=== PATIENT | male | born 1960 | race African-American/Black ===

== ENCOUNTER 2020-07-06 12:36 | Emergency (ER) | payer MEDICARE, MEDICAID ==
[~2020-07-06] VITALS: Ht 167.6 cm; Wt 87.1 kg
[~2020-07-06 12:36] MED LIST: AMBIEN10 M1 ORAL; AMITIZA24 MCG ORAL; DILAUDID4 MG ORAL; EPZICOM1 TAB ORAL; FENOFIBRATE 13134 MG ORAL; KLONOPIN1 MG ORAL; LACTULOSE20 GM/301 ORAL; LEXIVA700 MG ORAL; LIPITOR40 MG ORAL; NORVASC10 MG ORAL; PROPRANOLOL HCL10 MG ORAL; TRAZODONE HCL100 MG ORAL; VITAMIN D250000 UNI1 ORAL; XYZAL5 MG ORAL; ZETIA10 MG ORAL; ZYRTEC10 MG ORAL; [UNRECOGNIZED DRUG - OTHER] INJ
[2020-07-06] MEDS ORDERED: Metoclopramide 10mg/2ml Inj IVP ONE (13:00)
[2020-07-06] MEDS ORDERED: SUMAtriptan 6mg/0.5ml Inj SUBQ ONE (13:00)
[2020-07-06 13:04] VITALS: BP 141/95
--- NOTE | 2020-07-06 13:10 | NUR ---
ED Nurse Note: Patient from home and walked in due to SOB x 4 months and headache. sats 92 % in room air. Hx of asthma. Patient AAO x4, VSS at this time
--- NOTE | 2020-07-06 13:18 | Emergency Room Report ---
History of Present Illness General Chief Complaint: Dyspnea/Respdistress Present Illness HPI 59-year-old male with history of asthma here complaining of several months of asthma exacerbation and is requesting a chest x-ray primary doctor has not done so. Also requesting Dilaudid for headache. Reports that he took it was all the way from [place] to come here for his treatment. Denies diarrhea, loss of taste, loss of smell, cough or congestion. Complains of chest pain and pressure. Reports that he quit smoking many years ago. Denies any drug use and alcohol intake. Minimal wheezing noted patient is gasping for air. O2 sat is 92% on arrival. Patient appears to be afebrile. He also reports that he has history of acute kidney injury and cannot take anything for family. 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 Patient History Past Medical History: see triage record Past Surgical History: none Pertinent Family History: none Reviewed Nursing Documentation: PMH: Agreed; PSxH: Agreed Nursing Documentation-PMH Hx Cardiac Problems: Yes - HIV Hx Hypertension: Yes Hx Asthma: Yes Hx Cancer: No Hx Gastrointestinal Problems: No - kidney problems Hx Neurological Problems: No Hx Neurologic Surgery: No Review of Systems All Other Systems: negative except mentioned in HPI Physical Exam Vital Signs Date Time Temp Pulse Resp B/P (MAP) Pulse Ox O2 Delivery O2 Flow Rate FiO2 07/06/20 12:45 98.2 89 18 141/95 (110) 92 Room Air Sp02 EP Interpretation: abnormal - O2 sat 92% General Appearance: mild distress Head: normocephalic, atraumatic Eyes: bilateral eye normal inspection, bilateral eye PERRL ENT: hearing grossly normal, normal pharynx, no angioedema, normal voice Neck: full range of motion, supple/symm/no masses Respiratory: chest non-tender, speaking full sentences, wheezing Cardiovascular #1: regular rate, rhythm, no edema Cardiovascular #2: 2+ carotid (R), 2+ carotid (L), 2+ radial (R), 2+ radial (L), 2+ dorsalis pedis (R), 2+ dorsalis pedis (L) Gastrointestinal: normal bowel sounds, non tender, soft, non-distended, no guarding, no rebound Rectal: deferred Genitourinary: no CVA tenderness Musculoskeletal: back normal Neurologic: alert, motor strength/tone normal, oriented x3, sensory intact, responsive, speech normal Psychiatric: judgement/insight normal, memory normal, mood/affect normal, no suicidal/homicidal ideation Skin: no rash Lymphatic: no adenopathy Procedures Critical Care Time Critical Care Time Total critical care time; approximately 30 minutes. Due to a high probability of clinically significant, life threatening deterioration, the patient required my highest level of preparedness to intervene emergently and I personally spent this critical care time directly and personally managing the patient. This critical care time included obtaining a history; examining the patient; pulse oximetry; ordering and reviewing of studies; arranging urgent treatment with development of a management plan; evaluation of patient's response to treatment; frequent reassessment; and, discussions with other providers. This critical care time was performed to assess and manage the high probability of imminent, life-threatening deterioration that could result in multiorgan failure it was exclusive of separate billable procedures and treating other patients and teaching time. Please see MDM section and the rest of the note for further information on patient assessment and treatment. Patient was given 1 breathing treatment however the breathing treatment lasted 11/15 minutes and activating rapid Covid results. Medical Decision Making PA Attestation All diagnoses and treatment plans were reviewed and discussed with my supervising physician Dr. Morton Diagnostic Impression: Primary Impression: Asthma exacerbation Additional Impression: Chronic migraine ER Course 59-year-old male with history of asthma here complaining of several months of asthma exacerbation and is requesting a chest x-ray primary doctor has not done so. Also requesting Dilaudid for headache. Reports that he took it was all the way from [place] to come here for his treatment. Denies diarrhea, loss of taste, loss of smell, cough or congestion. Complains of chest pain and pressure. Reports that he quit smoking many years ago. Denies any drug use and alcohol intake. Minimal wheezing noted patient is gasping for air. O2 sat is 92% on arrival. Patient appears to be afebrile. He also reports that he has history of acute kidney injury and cannot take anything for family. Ddx considered but are not limited to: [place], Angina, COPD, GERD, coronavirus pneumonia Vital signs: are WNL, pt. is afebrile H&PE are most consistent with chronic migraine BURNETT, asthma exacerbation ORDERS: ER Covid order set, Z-Baldemar, every 4 hours patient refused to get oral steroids as reported in "I do not want to get fat." ED INTERVENTIONS: Reglan, NS bolus DISCHARGE: At this time pt. is stable for d/c to home. Will provide printed patient care instructions, and any necessary prescriptions. Care plan and follow up instructions have been discussed with the patient prior to discharge. Patient take medication as directed, follow-up with primary care provider, if worsening symptoms return to the emergency room EKG Diagnostic Results Rate: normal Rhythm: NSR ST Segments: no acute changes Other Impression No acute ST changes ASA given to the pt in ED: No Chest X-Ray Diagnostic Results Chest X-Ray Diagnostic Results : Chest X-Ray Ordered: Yes # of Views/Limited/Complete: 1 View Indication: Chest Pain EP Interpretation: Yes QUINN Xray: Interpretation reviewed, by supervising MD, and agrees with findings. Interpretation: no consolidation, no effusion, no pneumothorax Impression: No acute disease Electronically Signed by: Zane Frost PA-C Last Vital Signs Date Time Temp Pulse Resp B/P (MAP) Pulse Ox O2 Delivery O2 Flow Rate FiO2 07/06/20 13:04 89 18 Room Air 07/06/20 13:04 98.2 141/95 92 Disposition: HOME, SELF-CARE Condition: Stable Scripts Beclomethasone Dipropionate 40MCG Oral Inh (QVAR 40*) 7.3 Gm Aer.w.adap 2 PUFFS INH TWICE A DAY, #7.3 GM 0 Refills Prov: Zane Norton 07/06/20 Azithromycin* (ZITHROMAX*) 250 Mg Tablet 250 MG ORAL DAILY, #6 TAB 0 Refills Take two tables once daily for 1 day, then one tablet once daily for 4 days. Prov: Zane Norton 07/06/20 Patient Instructions: Asthma, Acute Bronchospasm Additional Instructions: Take medication as directed, follow primary care provider for referral to traffic rate analyst and also to director supply to better manage your asthma, worsening symptoms return to the emergency room Zane Norton Jul 06, 2020 13:18
[2020-07-06 13:46] LABS: BASOPHILS % (AUTO) 1.6 % (0.0-2.0); HEMATOCRIT 52.7 % (42.0-52.0); HEMOGLOBIN 15.7 G/DL (14.2-18.0); MEAN CORPUSCULAR VOLUME 91 FL (80-99); MONOCYTES % (AUTO) 10.5 % (1.0-10.0); NEUTROPHILS % (AUTO) 34.9 % (45.0-75.0); PLATELET COUNT 282 K/UL (150-450); RED BLOOD COUNT 5.79 M/UL (4.70-6.10); RED CELL DISTRIBUTION WIDTH 13.9 % (11.6-14.8); WHITE BLOOD COUNT 7.6 K/UL (4.8-10.8)
[2020-07-06 13:55] LABS: ANION GAP 7 mmol/L (5-15); BLOOD UREA NITROGEN 9 mg/dL (7-18); CARBON DIOXIDE 29 MMOL/L (21-32); CHLORIDE 105 MMOL/L (98-107); CREATININE 1.7 MG/DL (0.55-1.30); POTASSIUM 4.2 MMOL/L (3.5-5.1); SODIUM 141 MMOL/L (136-145)
[2020-07-06 13:56] LABS: APPEARANCE,URINE CLEAR; BILIRUBIN, URINE NEGATIVE (NEGATIVE); GLUCOSE, URINE (UA) NEGATIVE (NEGATIVE); KETONES,URINE NEGATIVE (NEGATIVE); LEUKOCYTE ESTERASE ,URINE NEGATIVE (NEGATIVE); NITRITE,URINE NEGATIVE (NEGATIVE); PH,URINE 5 (4.5-8.0); PROTEIN,URINE NEGATIVE (NEGATIVE); UROBILINOGEN,URINE NORMAL MG/DL (0.0-1.0)
[2020-07-06 13:57] LABS: COLOR,URINE YELLOW
[2020-07-06 14:06] LABS: INR 0.9 (0.9-1.1)
[2020-07-06 14:11] LABS: ALANINE AMINOTRANSFERASE 35 U/L (12-78); ALBUMIN 3.8 G/DL (3.4-5.0); ALKALINE PHOSPHATASE 115 U/L (46-116); ASPARTATE AMINO TRANSFERASE 17 U/L (15-37); BILIRUBIN,TOTAL 0.3 MG/DL (0.2-1.0); CKMB < 0.5 NG/ML (0.0-3.6); CREATINE KINASE 181 U/L (26-308); FERRITIN 43 NG/ML (8-388); LACTATE DEHYDROGENASE 227 U/L (81-234)
[2020-07-06] MEDS ORDERED: Albuterol/Ipratropium 3ml neb HHN ONE (15:30)
--- NOTE | 2020-07-06 15:35 | NUR ---
ED Nurse Note: RT at bed side
--- NOTE | 2020-07-06 15:54 | Diagnostic Imaging Report ---
Indication: Shortness of breath Technique: One view of the chest Comparison: November 20, 2014 Findings: Linear scarring is seen in the left lower lung. Lungs and pleural spaces are otherwise clear. The heart size is normal. The aorta is tortuous. Impression: No acute process
[2020-07-06] MEDS ORDERED: QVAR7.3 GM INH (15:57)
[2020-07-06] MEDS ORDERED: ZITHROMAX250 MG ORAL (15:57)
[2020-07-06 16:11] VITALS: BP 141/95
--- NOTE | 2020-07-06 16:12 | NUR ---
ER DISCHARGE NOTE: Patient is cleared to be discharged per ERMD, pt is aox4, on room air, with stable vital signs. pt was given dc and prescription instructions, pt was able to verbalize understanding, pt id band and iv site removed without complications. pt is able to ambulate with steady gait. pt took all belongings.
== END 2020-07-06 16:12 | disposition home or self-care (01) ==
LOC: EMR 13:00
DX: J45.901 Unspecified asthma with (acute) exacerbation (principal); I10 Essential (primary) hypertension; B20 Human immunodeficiency virus [HIV] disease; Z88.8 Allergy status to other drugs, medicaments and biological substances; G43.909 Migraine, unspecified, not intractable, without status migrainosus; Z87.891 Personal history of nicotine dependence
CPT/HCPCS: 36415; 71045; 80053; 80307; 81003; 82550; 82553; 82728; 83605; 83615; 83690; 83880; 84484; 85025; 85379; 85610; 85730; 86140; 87040; 93005; 94640; 96361; 96372; 96374; 96375; 99285; J1100; J2765; J3030; U0002; J7030; J7620